=== PATIENT | female | born 2000 | race Caucasian/White ===

== ENCOUNTER 2018-09-25 19:26 | Emergency (ER) | payer OTHER ==
[~2018-09-25] VITALS: Ht 160 cm; Wt 58.6 kg
[2018-09-25] MEDS ORDERED: ALBUTEROL SULFATE 2.5 MG/3 ML ONE (20:18)
[2018-09-25] MEDS ORDERED: ALBUTEROL/IPRATROPIUM 2.5MG/0.5MG, 3 ML NPPB SCH (20:30)
[2018-09-25] MEDS ORDERED: methylPREDNISolone SOD SUCC 125 MG/2 ML IVP ONE (20:30)
[2018-09-25] MEDS ORDERED: MAGNESIUM SULFATE PMX 2GM/50ML 50 ML IVPB ONE (20:30)
[2018-09-25] MEDS ORDERED: SODIUM CHLORIDE FLUSH 10ML SYR IVF ONE (20:30)
[2018-09-25 20:33] LABS: BASOPHILS # (AUTO) 0.03 x10^3/uL (0-0.3); BASOPHILS % (AUTO) 0 % (0-1); EOSINOPHILS # (AUTO) 0.07 x10^3/uL (0-0.8); EOSINOPHILS % (AUTO) 1 % (1-7); LYMPHOCYTES # (AUTO) 2.02 x10^3/uL (1-6.1); LYMPHOCYTES % (AUTO) 23 % (22-44); MD NO; MEAN CORPUSCULAR HEMOGLOBIN 30.9 pg (27.0-34.8); MEAN CORPUSCULAR HGB CONC 33.6 g/dL (32.4-35.8); MEAN PLATELET VOLUME 8.6 fL (7.4-10.4); MONOCYTES % (AUTO) 5 % (2-9); NEUTROPHILS # (AUTO) 6.42 x10^3/uL (1.8-8.0); NEUTROPHILS % (AUTO) 72 % (42-75); PLATELET COUNT 402 x10^3/uL (130-400); RED BLOOD COUNT 5.05 x10^6/uL (3.82-5.3); RED CELL DISTRIBUTION WIDTH 12.4 % (9.6-15.2)
[2018-09-25] MEDS ORDERED: MAGNESIUM SULFATE PMX 2GM/50ML 50 ML ONE (20:35)
[2018-09-25] MEDS ORDERED: methylPREDNISolone SOD SUCC 125 MG/2 ML ONE (20:35)
[2018-09-25 20:44] LABS: ALBUMIN 4.6 g/dL (3.4-5.0); ANION GAP 10 mmol/L (5-15); CALCIUM 9.4 mg/dL (8.5-10.1); CHLORIDE 109 mmol/L (98-107); CREATININE 0.85 mg/dL (0.55-1.02)
--- NOTE | 2018-09-25 20:45 | NUR ---
RT AT BEDSIDE
[2018-09-25 20:48] LABS: TROPONIN I < 0.015 ng/mL (0.000-0.045)
--- NOTE | 2018-09-25 21:35 | NUR ---
TASK RN: LE SUERO. 18G LEFT AC.
[2018-09-25 21:41] VITALS: BP 140/83
--- NOTE | 2018-09-25 21:45 | NUR ---
IV ESTABLISHED AND SOLUMEDROL GIVEN, MG INFUSING. BOYFRIEND AT BEDSIDE. PT ON MONITOR, STATES SHE FEELS BETTER
--- NOTE | 2018-09-25 22:14 | NUR ---
MG INFUSING, ABOUT 40 MIN LEFT, DC WHEN DONE.
== END 2018-09-25 22:47 | disposition home or self-care (01) ==
LOC: ED 21:07
DX: J45.41 Moderate persistent asthma with (acute) exacerbation (principal)
CPT/HCPCS: 36415; 71045; 80048; 82040; 83880; 84484; 85025; 93005; 94640; 96365; 96366; 96375; 99284; J2930; J3475